=== PATIENT | male | born 1965 | race Two or more races ===

== ENCOUNTER 2024-10-03 01:40 | Emergency (ER) | payer OTHER ==
[~2024-10-03] VITALS: Ht 182.9 cm; Wt 113.4 kg
[2024-10-03 03:00] VITALS: BP 137/93; TEMP 98; O2SAT 100
== END 2024-10-03 03:01 | disposition home or self-care (01) ==
LOC: ER 01:42
DX: T43.651A Poisoning by methamphetamines accidental (unintentional), initial encounter (principal); F19.10 Other psychoactive substance abuse, uncomplicated; Y92.89 Other specified places as the place of occurrence of the external cause
CPT/HCPCS: 82962-TC